=== PATIENT | male | born 1950 | race Caucasian/White ===

== ENCOUNTER → 2017-02-09 | Outpatient (CLI) | payer BC, MEDICARE | LOC: M LAB 15:29 | PROVIDERS: ATTEND Urology | DX: R97.20 Elevated prostate specific antigen [PSA] (principal) ==

== ENCOUNTER → 2017-06-04 | Outpatient (REF) | payer BC, MEDICARE ==
[2017-06-04 21:15] LABS: PERCENT SATURATION 48.3 % (19.7-50.0)
== END ==
LOC: M LAB REF 17:46
PROVIDERS: ATTEND Internal Medicine Medical Oncology
DX: C91.10 Chronic lymphocytic leukemia of B-cell type not having achieved remission (principal)

== ENCOUNTER → 2017-08-23 | Outpatient (REF) | payer BC, MEDICARE | LOC: M LAB REF 12:06 | PROVIDERS: ATTEND Physician Assistant Medical | DX: R53.83 Other fatigue (principal) ==

== ENCOUNTER → 2017-10-23 | Outpatient (CLI) | payer BC, MEDICARE ==
[2017-10-23 11:17] LABS: TOTAL 25(OH) VITAMIN D 67.1 NG/ML (30.0-100.0)
[2017-10-23 11:26] LABS: PROSTATIC SPECIFIC AG MONITOR 5.44 NG/ML (< 4.0)
== END ==
LOC: M LAB 10:16
DX: E55.9 Vitamin D deficiency, unspecified (principal); R97.21 Rising PSA following treatment for malignant neoplasm of prostate
CPT/HCPCS: 84153

== ENCOUNTER → 2018-06-08 | Outpatient (CLI) | payer MEDICARE, BC ==
[2018-06-08 15:47] LABS: PROSTATIC SPECIFIC AG MONITOR 5.66 NG/ML (< 4.0)
== END ==
LOC: M LAB 14:20
DX: R97.20 Elevated prostate specific antigen [PSA] (principal)
CPT/HCPCS: 84153

== ENCOUNTER → 2018-12-27 | Outpatient (CLI) | payer MEDICARE, BC ==
[~2018-12-27] MED LIST: ASPI81TA26 PO; FLOM0.4C39 PO; MULTCAP PO
[2018-12-27 10:26] LABS: PROSTATIC SPECIFIC AG MONITOR 5.72 NG/ML (< 4.00)
[2018-12-27 10:32] LABS: TOTAL 25(OH) VITAMIN D 56.2 NG/ML (30.0-100.0)
== END ==
LOC: M LAB 09:09
PROVIDERS: ATTEND Urology
DX: R97.20 Elevated prostate specific antigen [PSA] (principal); E55.9 Vitamin D deficiency, unspecified

== ENCOUNTER → 2019-05-11 | Outpatient (CLI) | payer MEDICARE, BC ==
[2019-05-11 13:00] LABS: BASO % 0.4 % (0.0-1.0); EOS % 1.1 % (0.0-3.0); HEMATOCRIT 34.5 % (42.0-52.0); HEMOGLOBIN 12.1 g/dl (13.5-17.5); LYMPH # 0.7 10^3/uL (1.5-5.0); MEAN CORPUSCULAR HEMOGLOBIN 33.5 pg (27.0-33.0); MEAN CORPUSCULAR HGB CONC 35.1 g/dl (32.0-36.5); MEAN CORPUSCULAR VOLUME 95.6 fl (80.0-96.0); MONO # 0.3 10^3/uL (0.0-0.8); MONO % 10.7 % (0.0-5.0); NEUTROPHILS # 1.8 10^3/uL (1.5-8.5); NEUTROPHILS % 62.4 % (36.0-66.0); RED BLOOD COUNT 3.61 10^6/uL (4.30-6.10); WHITE BLOOD COUNT 2.8 10^3/uL (4.0-10.0)
[2019-05-11 13:04] LABS: PLATELET COUNT, AUTOMATED 82 10^3/uL (150-450)
[2019-05-11 13:15] LABS: ALBUMIN 4.1 GM/DL (3.2-5.2); ALT/SGPT 31 U/L (12-78); BILIRUBIN,DIRECT 0.2 MG/DL (0.0-0.2); BILIRUBIN,TOTAL 0.8 MG/DL (0.2-1.0); BLOOD UREA NITROGEN 25 MG/DL (7-18); CREATININE FOR GFR 0.66 MG/DL (0.70-1.30); GAMMA GLUTAMYLTRANSPEPTIDASE 49 U/L (15-85); GLOMERULAR FILTRATION RATE > 60.0 (>49); TOTAL PROTEIN 5.6 GM/DL (6.4-8.2)
== END ==
LOC: M LAB 11:37
PROVIDERS: ATTEND Internal Medicine Gastroenterology
DX: R10.11 Right upper quadrant pain (principal)

== ENCOUNTER → 2019-05-17 | Outpatient (CLI) | payer MEDICARE, BC ==
[~2019-05-17] MED LIST changes: +PROHANCE 279.3MG/ML 15ML VIAL (A9576) As Ordered ONE
--- NOTE | 2019-05-18 15:19 | REP ---
MRI PANCREAS WITH AND WITHOUT CONTRAST: COMPARISON: Ultrasound [facility] 11/29/[address] 05/11/2014. TECHNIQUE: Multiple sequences obtained in the axial and coronal planes prior to and following the intravenous administration of 13 mL ProHance. I do not see a definite mass in the pancreas, however, the common bile duct is somewhat dilated up to 10 mL maximally. No filling defect or stone is seen in the visualized common bile duct. However, there is relatively abrupt transition at the distal aspect without normal tapering distally. There is some separation between the dilated common bile duct and adjacent dilated distal pancreatic duct, which measures 5 mm. I am suspicious of an occult nodule or mass at the ampulla. No filling defect is seen in the gallbladder and there is no gallbladder wall thickening or edema. No mass is seen in the visualized liver. The spleen is mildly enlarged measuring 13.8 cm in length. No adrenal mass is seen. There are several small cysts in the left renal pelvic region. Multiple periaortic and aortocaval lymph nodes are present. A mildly enlarged portal lymph node measures 1.9 cm. Most of the periaortic nodes are less than 1 cm in short axis dimension with the largest 11 mm in short axis. Multiple mesenteric lymph nodes are seen inferior to the pancreas, with many less than 1 cm in short axis. The largest measures 1.2 x 2.9 cm. No ascites is seen. IMPRESSION: No pancreatic mass visualized by MRI, however, there is dilatation of the common bile duct up to 10 mm and dilatation of the distal pancreatic duct up to 5 mm. There is relatively abrupt termination of these ducts which are , raising suspicion for a nodular mass in the region of the ampulla of Vater. No stone is seen in the gallbladder or common bile duct. There is mild adenopathy in the retroperitoneum, portal region and mesentery as described above. Mild splenomegaly. Electronically Signed by Alexis Keith MD 05/19/2019 04:47 P
== END ==
LOC: M RAD 10:16
PROVIDERS: ATTEND Internal Medicine Gastroenterology
DX: R10.11 Right upper quadrant pain (principal)
CPT/HCPCS: 74183; A9576

== ENCOUNTER → 2019-06-15 | Outpatient (CLI) | payer MEDICARE, BC ==
[~2019-06-15] MED LIST changes: -PROHANCE 279.3MG/ML 15ML VIAL (A9576) As Ordered ONE
[2019-06-15 10:35] LABS: BASO % 0.6 % (0.0-1.0); EOS % 0.9 % (0.0-3.0); HEMATOCRIT 34.5 % (42.0-52.0); HEMOGLOBIN 11.8 g/dl (13.5-17.5); LYMPH # 0.6 10^3/uL (1.5-5.0); LYMPH % 18.4 % (24.0-44.0); MEAN CORPUSCULAR HEMOGLOBIN 33.1 pg (27.0-33.0); MEAN CORPUSCULAR HGB CONC 34.2 g/dl (32.0-36.5); MEAN CORPUSCULAR VOLUME 96.9 fl (80.0-96.0); MONO # 0.5 10^3/uL (0.0-0.8); MONO % 14.7 % (0.0-5.0); NEUTROPHILS # 2.1 10^3/uL (1.5-8.5); NEUTROPHILS % 65.1 % (36.0-66.0); PLATELET COUNT, AUTOMATED 116 10^3/uL (150-450); RED BLOOD COUNT 3.56 10^6/uL (4.30-6.10); WHITE BLOOD COUNT 3.2 10^3/uL (4.0-10.0)
[2019-06-15 11:46] LABS: IMMUNOGLOBULIN A < 7.8 MG/DL (70-400); IMMUNOGLOBULIN G 169 MG/DL (681-1648)
== END ==
LOC: M LAB 09:35
PROVIDERS: ATTEND Internal Medicine Hematology & Oncology
DX: C91.10 Chronic lymphocytic leukemia of B-cell type not having achieved remission (principal)

== ENCOUNTER → 2019-06-28 | Outpatient (CLI) | payer MEDICARE, BC ==
[2019-06-28 12:28] LABS: PROSTATIC SPECIFIC AG MONITOR 8.22 NG/ML (< 4.00)
[2019-06-28 12:36] LABS: TOTAL 25(OH) VITAMIN D 42.1 NG/ML (30.0-100.0)
== END ==
LOC: M LAB 10:46
PROVIDERS: ATTEND Urology
DX: E55.9 Vitamin D deficiency, unspecified (principal); R97.20 Elevated prostate specific antigen [PSA]

== ENCOUNTER → 2019-12-01 | Outpatient (CLI) | payer MEDICARE, BC | LOC: M LAB 10:23 | PROVIDERS: ATTEND Urology | DX: R97.20 Elevated prostate specific antigen [PSA] (principal) ==

== ENCOUNTER → 2020-01-24 | Outpatient (CLI) | payer MEDICARE, BC ==
[2020-01-24 11:04] LABS: BASO % 0.4 % (0.0-1.0); EOS # 0.1 10^3/uL (0.0-0.5); HEMATOCRIT 34.3 % (42.0-52.0); LYMPH # 0.9 10^3/uL (1.5-5.0); MEAN CORPUSCULAR HEMOGLOBIN 34.1 pg (27.0-33.0); MEAN CORPUSCULAR VOLUME 97.4 fl (80.0-96.0); MONO # 0.2 10^3/uL (0.0-0.8); MONO % 8.3 % (0.0-5.0); NEUTROPHILS # 1.3 10^3/uL (1.5-8.5); NEUTROPHILS % 51.9 % (36.0-66.0); RED BLOOD COUNT 3.52 10^6/uL (4.30-6.10); WHITE BLOOD COUNT 2.5 10^3/uL (4.0-10.0)
[2020-01-24 11:23] LABS: PLATELET COUNT, AUTOMATED 84 10^3/uL (150-450)
[2020-01-24 11:34] LABS: ALT/SGPT 36 U/L (12-78); BILIRUBIN,TOTAL 0.9 MG/DL (0.2-1.0); BLOOD UREA NITROGEN 16 MG/DL (7-18); CALCIUM LEVEL 8.5 MG/DL (8.8-10.2); CARBON DIOXIDE LEVEL 31 MEQ/L (21-32); CHLORIDE LEVEL 107 MEQ/L (98-107); CREATININE FOR GFR 0.68 MG/DL (0.70-1.30); GLOMERULAR FILTRATION RATE > 60.0 (>42); GLUCOSE, FASTING 87 MG/DL (70-100); LDH LACTATE DEHYDROGENASE 166 U/L (87-241); POTASSIUM SERUM 4.2 MEQ/L (3.5-5.1); SODIUM LEVEL 142 MEQ/L (136-145); TOTAL PROTEIN 5.7 GM/DL (6.4-8.2)
== END ==
LOC: M LAB 09:36
PROVIDERS: ATTEND Internal Medicine
DX: C91.10 Chronic lymphocytic leukemia of B-cell type not having achieved remission (principal)

== ENCOUNTER → 2020-02-13 | Outpatient (CLI) | payer MEDICARE, BC | LOC: M LABSMTC 12:16 | PROVIDERS: ATTEND Family Medicine | DX: Z03.818 Encounter for observation for suspected exposure to other biological agents ruled out (principal); Z11.59 Encounter for screening for other viral diseases | CPT/HCPCS: C9803; U0003 ==

== ENCOUNTER → 2020-04-02 | Outpatient (CLI) | payer MEDICARE, BC ==
[2020-05-06 03:24] LABS: BASO % 0.4 % (0.0-1.0); EOS % 1.1 % (0.0-3.0); HEMATOCRIT 34.8 % (42.0-52.0); HEMOGLOBIN 12.2 g/dl (13.5-17.5); LYMPH # 1.4 10^3/uL (1.5-5.0); LYMPH % 51.7 % (24.0-44.0); MEAN CORPUSCULAR HEMOGLOBIN 34.6 pg (27.0-33.0); MEAN CORPUSCULAR HGB CONC 35.1 g/dl (32.0-36.5); MEAN CORPUSCULAR VOLUME 98.6 fl (80.0-96.0); MONO # 0.2 10^3/uL (0.0-0.8); MONO % 6.6 % (0.0-5.0); NEUTROPHILS # 1.1 10^3/uL (1.5-8.5); NEUTROPHILS % 39.8 % (36.0-66.0); PLATELET COUNT, AUTOMATED 89 10^3/uL (150-450); RED BLOOD COUNT 3.53 10^6/uL (4.30-6.10); WHITE BLOOD COUNT 2.7 10^3/uL (4.0-10.0)
[2020-05-08 22:11] LABS: ALBUMIN 4.1 GM/DL (3.2-5.2); ALT/SGPT 32 U/L (12-78); BLOOD UREA NITROGEN 12 MG/DL (7-18); CALCIUM LEVEL 8.7 MG/DL (8.8-10.2); CARBON DIOXIDE LEVEL 29 MEQ/L (21-32); CHLORIDE LEVEL 109 MEQ/L (98-107); CREATININE FOR GFR 0.89 MG/DL (0.70-1.30); GLOMERULAR FILTRATION RATE > 60.0 (>42); GLUCOSE, FASTING 93 MG/DL (70-100); IMMUNOGLOBULIN G 158 MG/DL (681-1648); LDH LACTATE DEHYDROGENASE 153 U/L (87-241); POTASSIUM SERUM 4.6 MEQ/L (3.5-5.1); SODIUM LEVEL 142 MEQ/L (136-145); TOTAL PROTEIN 5.9 GM/DL (6.4-8.2)
== END ==
LOC: M LAB 11:32 → M INFU 11:32
PROVIDERS: ATTEND Nurse Practitioner Family
DX: C91.10 Chronic lymphocytic leukemia of B-cell type not having achieved remission (principal)

== ENCOUNTER → 2020-05-30 | Outpatient (CLI) | payer MEDICARE, BC | LOC: M LAB 14:59 | PROVIDERS: ATTEND Urology | DX: R97.20 Elevated prostate specific antigen [PSA] (principal) ==

== ENCOUNTER → 2020-06-18 | Outpatient (CLI) | payer MEDICARE, BC ==
[2020-06-18 08:18] LABS: CHOLESTEROL RISK RATIO 2.019 (<5)
[2020-06-18 11:20] LABS: TOTAL 25(OH) VITAMIN D 75.6 NG/ML (30.0-100.0)
== END ==
LOC: M LAB 07:33
DX: Z13.21 Encounter for screening for nutritional disorder (principal); Z79.899 Other long term (current) drug therapy

== ENCOUNTER → 2020-08-03 | Outpatient (CLI) | payer MEDICARE, BC ==
[2020-08-03 11:11] LABS: BASO % 0.4 % (0.0-1.0); EOS # 0.1 10^3/uL (0.0-0.5); HEMATOCRIT 30.3 % (42.0-52.0); HEMOGLOBIN 10.5 g/dl (13.5-17.5); LYMPH # 1.6 10^3/uL (1.5-5.0); LYMPH % 62.6 % (24.0-44.0); MEAN CORPUSCULAR HEMOGLOBIN 35.2 pg (27.0-33.0); MEAN CORPUSCULAR HGB CONC 34.7 g/dl (32.0-36.5); MEAN CORPUSCULAR VOLUME 101.7 fl (80.0-96.0); MONO # 0.2 10^3/uL (0.0-0.8); MONO % 5.9 % (0.0-5.0); NEUTROPHILS % 29.1 % (36.0-66.0); RED BLOOD COUNT 2.98 10^6/uL (4.30-6.10); WHITE BLOOD COUNT 2.5 10^3/uL (4.0-10.0)
[2020-08-03 11:30] LABS: NEUTROPHILS # 0.7 10^3/uL (1.5-8.5); PLATELET COUNT, AUTOMATED 75 10^3/uL (150-450)
[2020-08-03 12:11] LABS: ALT/SGPT 22 U/L (12-78); BLOOD UREA NITROGEN 15 MG/DL (7-18); CALCIUM LEVEL 8.1 MG/DL (8.8-10.2); CARBON DIOXIDE LEVEL 26 MEQ/L (21-32); CHLORIDE LEVEL 110 MEQ/L (98-107); CREATININE FOR GFR 0.78 MG/DL (0.70-1.30); GLOMERULAR FILTRATION RATE > 60.0 (>42); GLUCOSE, FASTING 91 MG/DL (70-100); IMMUNOGLOBULIN G 126 MG/DL (681-1648); LDH LACTATE DEHYDROGENASE 192 U/L (87-241); POTASSIUM SERUM 4.3 MEQ/L (3.5-5.1); SODIUM LEVEL 141 MEQ/L (136-145); TOTAL PROTEIN 5.5 GM/DL (6.4-8.2)
== END ==
LOC: M LAB 10:11
PROVIDERS: ATTEND Internal Medicine
DX: C91.10 Chronic lymphocytic leukemia of B-cell type not having achieved remission (principal)